=== PATIENT | male | born 1985 | race American Indian/Alaskan Native ===

== ENCOUNTER 2019-09-18 14:49 | Emergency (ER) | payer OTHER ==
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
[2019-09-18 15:13] VITALS: BP 119/58
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
== END 2019-09-18 16:11 | disposition home or self-care (01) ==
LOC: ED 14:49
DX: M54.5 Low back pain (principal); F17.200 Nicotine dependence, unspecified, uncomplicated; Z79.899 Other long term (current) drug therapy; V89.2XXA Person injured in unspecified motor-vehicle accident, traffic, initial encounter; Y93.89 Activity, other specified; Y92.89 Other specified places as the place of occurrence of the external cause; Y99.8 Other external cause status
CPT/HCPCS: 99282

== ENCOUNTER 2021-01-13 12:44 | Emergency (ER) | payer SELFPAY ==
[2021-01-13] MEDS ORDERED: TETRACAINE 0.5% OPHTH SOLN 4ML OU ONE (17:37)
[2021-01-13] MEDS ORDERED: FLUORESCEIN 1 MG STRIP OP ONE (17:38)
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
[2021-01-13] MEDS ORDERED: IBUPROFEN 800 MG TAB PO ONE (18:06)
[2021-01-13 18:53] VITALS: BP 124/72
== END 2021-01-13 18:53 | disposition home or self-care (01) ==
LOC: ED 12:44
DX: S05.01XA Injury of conjunctiva and corneal abrasion without foreign body, right eye, initial encounter (principal); F17.200 Nicotine dependence, unspecified, uncomplicated; Z79.899 Other long term (current) drug therapy; Z98.890 Other specified postprocedural states; Z77.098 Contact with and (suspected) exposure to other hazardous, chiefly nonmedicinal, chemicals; X58.XXXA Exposure to other specified factors, initial encounter; Y93.89 Activity, other specified; Y92.89 Other specified places as the place of occurrence of the external cause; Y99.0 Civilian activity done for income or pay
CPT/HCPCS: 99282